=== PATIENT | male | born 1995 | race Hispanic/Latino ===

== ENCOUNTER 2020-03-08 14:58 | Emergency (ER) | payer SELFPAY ==
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
[2020-03-08 17:44] VITALS: BP 130/64
== END 2020-03-08 17:42 | disposition home or self-care (01) ==
LOC: ED 14:58
DX: S21.112A Laceration without foreign body of left front wall of thorax without penetration into thoracic cavity, initial encounter (principal); Z79.899 Other long term (current) drug therapy; Z91.013 Allergy to seafood; W45.8XXA Other foreign body or object entering through skin, initial encounter; Y93.89 Activity, other specified; Y92.89 Other specified places as the place of occurrence of the external cause; Y99.8 Other external cause status
CPT/HCPCS: 71250